=== PATIENT | male | born 1975 | race Caucasian/White ===

== ENCOUNTER 2020-08-13 19:27 | Emergency (ER) | payer SELFPAY ==
[2020-08-13] MEDS ORDERED: Albuterol Sulfate 2.5 mg/3 ml Neb ONE (20:11)
[2020-08-13] MEDS ORDERED: predniSONE 20 MG TAB ONE (20:13)
[2020-08-13 20:18] LABS: #Basophils 0.1 thou/uL (0.0-0.2); #Eosinphils 0.4 thou/uL (0.0-0.7); #Lymphocytes 2.8 thou/uL (1.20-3.40); #Monocytes 1.2 thou/uL (0.11-0.59); #Neutrophils 5.4 thou/uL (1.40-6.50); %Basophils 0.9 % (0.0-1.0); %Eosinophils 4.3 % (0.0-10.0); %Lymphocytes 28.2 % (21.0-51.0); %Monocytes 12.2 % (0.0-10.0); %Neutrophils 54.5 % (42.0-75.0); Hemoglobin 15.2 g/dL (14.0-18.0); Mean Corpuscular HGB CONC 33.8 g/dL (32.0-36.0); Mean Corpuscular Hemoglobin 31.2 pg (27.0-31.0); Mean Corpuscular Volume 92.4 fL (78.0-98.0); Platelet Count 210 thou/uL (130-400); RBC Distribution Width 12.9 % (11.5-14.5); Red Blood Cell (RBC) Count 4.88 mill/uL (4.70-6.10); White Blood Cell (WBC) Count 9.9 thou/uL (4.8-10.8)
[2020-08-13 20:52] LABS: ALT (SGPT) 36 U/L (8-55); AST (SGOT) 28 U/L (5-34); Albumin 4.3 g/dL (3.5-5.0); Alkaline Phosphatase 59 U/L (40-110); Anion Gap 14 mmol/L (10-20); BUN (Urea Nitrogen) 13 mg/dL (8.9-20.6); Bilirubin, Total 0.3 mg/dL (0.2-1.2); Calc. Creatinine Clearance 0 mL/min (70-130); Calcium 8.8 mg/dL (7.8-10.44); Carbon Dioxide 25 mmol/L (22-29); Chloride 106 mmol/L (98-107); Estimated GFR-MDRD Greater than 90; Globulin 3.2 g/dL (2.4-3.5); Glucose 87 mg/dL (70-105); Potassium 4.1 mmol/L (3.5-5.1); Protein, Total 7.5 g/dL (6.0-8.3); Sodium 141 mmol/L (136-145)
--- NOTE | 2020-08-13 20:54 | RAD ---
PORTABLE UPRIGHT FRONTAL CHEST: Date: 08/13/2020 COMPARISON: None. HISTORY: Shortness of breath. FINDINGS: Increased density is seen in the right paratracheal region. It is uncertain whether this represents p rominent/dilated vascular structures or lymphadenopathy. There is no pneumothorax, lobar consolidatio n, or alveolar edema. Cardiac silhouette appears enlarged. IMPRESSION: Increased density in the right paratracheal region which could represent vascular engorgement or lymp hadenopathy. No comparison imaging is available. Dedicated PA and lateral imaging of the chest is advised. If right paratracheal prominence persists, CT examination of the chest is advised. POS: TEE
--- NOTE | 2020-08-13 21:25 | RAD ---
TWO VIEWS CHEST: 08/13/20 PROVIDED CLINICAL HISTORY: Shortness of breath. Comparison is made with the study dated 08/13/20. The cardiac silhouette remains enlarged. The paratracheal density described on prior radiograph is le ss conspicuous and presumably reflects vascular ectasia. There is prominence of the pulmonary vascula ture and pulmonary interstitium. There is no focal consolidation, pleural fluid, or pneumothorax appa rent. IMPRESSION: Cardiomegaly and prominence of the pulmonary vasculature suggest congestive failure. POS: DORY
== END 2020-08-13 20:20 | disposition home or self-care (01) ==
LOC: ERS 19:27
DX: R06.00 Dyspnea, unspecified (principal); Z87.891 Personal history of nicotine dependence
CPT/HCPCS: 71045; 71046; 80053; 83880; 84484; 85025; 93005; 94640; J7512; J7611; J7620